=== PATIENT | male | born 1990 | race Caucasian/White ===

== ENCOUNTER 2025-04-19 19:36 | Emergency (ER) | payer MEDICAID, OTHER ==
[2025-04-19] MEDS ORDERED: HYDR453.3 TP (20:18)
[2025-04-19] MEDS ORDERED: METH2.5T14 PO (20:18)
[2025-04-19] MEDS ORDERED: FOLI0.8C PO (20:18)
== END 2025-04-19 20:22 | disposition home or self-care (01) ==
LOC: ER 19:39
DX: R21 Rash and other nonspecific skin eruption (principal)

== ENCOUNTER 2025-05-03 15:03 | Emergency (ER) | payer MEDICAID ==
[~2025-05-03] VITALS: Ht 165.1 cm; Wt 72.6 kg
[~2025-05-03 15:03] MED LIST: FOLI0.8C PO; HYDR453.3 TP; METH2.5T14 PO
[2025-05-03 15:48] VITALS: BP 125/68; TEMP 97.8
[2025-05-03] MEDS ORDERED: PRED20TA PO (16:42)
[2025-05-03 16:51] VITALS: O2SAT 97
== END 2025-05-03 16:52 | disposition home or self-care (01) ==
LOC: ER 15:08
DX: R21 Rash and other nonspecific skin eruption (principal); L40.9 Psoriasis, unspecified; Z79.899 Other long term (current) drug therapy

== ENCOUNTER 2025-05-15 07:36 | Emergency (ER) | payer MEDICAID ==
[~2025-05-15] VITALS: Ht 160 cm; Wt 59.9 kg
[~2025-05-15 07:36] MED LIST changes: +PRED20TA PO
[2025-05-15 07:54] VITALS: BP 130/90; TEMP 98.1; O2SAT 99
[2025-05-15] MEDS ORDERED: METH2.5T14 PO (08:37)
[2025-05-15] MEDS ORDERED: PRED20TA PO (08:37)
[2025-05-15] MEDS ORDERED: HYDR453.3 TP (08:37)
== END 2025-05-15 08:47 | disposition home or self-care (01) ==
LOC: ER 07:40
DX: L40.9 Psoriasis, unspecified (principal); Z79.52 Long term (current) use of systemic steroids